=== PATIENT | female | born 1990 | race Caucasian/White ===

== ENCOUNTER 2019-10-12 08:33 | Emergency (ER) | payer MEDICAID, SELFPAY ==
[2019-10-12 08:39] VITALS: BP 115/94; PULSE 112; RESP 18; TEMP 37.3; O2SAT 98; BMI 46.6
--- NOTE | 2019-10-12 08:45 | W.ED.GENADLT ---
HPI - General Adult General: Chief complaint: General Medical Stated complaint: INSECT BITE Time Seen by Provider: 10/12/19 08:36 History of Present Illness: HPI narrative: Patient has insect bites her right arm. Complains about pain some itching. Patient 25 weeks . Onset (ago): hour(s) Location: right and upper extremity Radiation: non-radiation Severity: mild Associated symptoms: Reports no associated symptoms; Deny chest pain, dyspnea, headache(s), nausea, rash or vomiting Review of Systems Const: Denies: fever(s), chills or body aches Eyes: Denies: change in vision or blurry vision ENMT: Denies: throat pain or nasal congestion Card: Denies: chest pain or dyspnea on exertion Resp: Denies: dyspnea, productive cough or non-productive cough GI: Denies: abdominal pain, nausea or vomiting Musc: Denies: extremity pain Skin/Breast: Reports: other (Complains about insect bite to the right armpit area. And also some bites down that arm. Says Tylenol is not helping with pain.); Denies: rash Neuro: Denies: headache(s) Psych: Denies: anxiety or depression Dilip/Lymph: Denies: easy bruising PFSH ED PFSH: Social History Smoking and tobacco status: current every day smoker Physical Exam Const: COMMON NORMALS: no acute distress, average body habitus and patient oriented x3 HENMT: COMMON NORMALS: normocephalic HEAD & SCALP: normal to inspection and normocephalic FACE & SINUS: normal facial exam Eye: COMMON NORMALS: conjunctivae normal GENERAL EYE: appearance normal, both eyes and all related structures CONJUNCTIVA: Yes conjunctivae normal Neck/C-Spine: COMMON NORMALS: no JVD Chest: COMMONS NORMALS: normal inspection of the chest Resp: COMMON NORMALS: normal respiratory effort and clear to auscultation bilaterally AUSCULTATION: clear to auscultation bilaterally Cardio: COMMON NORMALS: no JVD, regular rate and regular rhythm RATE: regular rate RHYTHM: regular rhythm GI: COMMON NORMALS: Normal to inspection, nondistended, normoactive bowel sounds present Extremity: COMMON NORMALS: normal to inspection and full ROM RIGHT UPPER EXTREMITY: Yes upper arm (Patient has a bruised area near the right armpit with some redness appears to have a bite. Then has 3 bites on the right forearm that have slight redness around them.) Neuro: COMMON NORMALS: patient oriented x3 Course Vital Signs: Vital signs: Vital Signs Temperature 99.1 F 10/12/19 08:39 Pulse Rate 112 H 10/12/19 08:39 Respiratory Rate 18 10/12/19 08:39 Blood Pressure 115/94 10/12/19 08:39 Pulse Oximetry 98 10/12/19 08:39 Discharge Plan Discharge Condition: Stable Referrals: Kelly Hurt NP [Family Provider] - Coding Level of Care Code ED Candy Wrapping Machine Operator for Brian Christian
== END 2019-10-12 08:51 | disposition home or self-care (01) ==
LOC: ER 08:54
PROVIDERS: Emergency Provider Nurse Practitioner Family; Family Provider Nurse Practitioner Family
DX: S40.861A Insect bite (nonvenomous) of right upper arm, initial encounter (principal); W57.XXXA Bitten or stung by nonvenomous insect and other nonvenomous arthropods, initial encounter; F17.210 Nicotine dependence, cigarettes, uncomplicated
CPT/HCPCS: 12345; 99281

== ENCOUNTER 2021-03-31 21:47 | Emergency (ER) | payer MEDICAID, SELFPAY ==
[2021-03-31 21:56] VITALS: BP 151/95; PULSE 89; RESP 16; TEMP 36.8; O2SAT 98
--- NOTE | 2021-03-31 22:30 | ED_ITS ---
HPI - Abdominal Pain General: Chief Complaint: Abdominal Pain Stated Complaint: Hernia Pain\Back Pain Time Seen by Provider: 03/31/21 22:10 Source: patient Mode of arrival: ambulatory Limitations: no limitations History of Present Illness: HPI narrative: 30-year-old female states that she has had a history of an umbilical hernia in the past states that today the hernia is grown became hard and now is very tender and painful states it is much worse with palpation improved with rest states pain is currently sharp nature rates it a 6 out of 10 denies any vomiting denies any bowel movements no history of an incarcerated hernia there before. She had no surgeries before. Associated Symptoms: Denies chills, dysuria and fever(s) Review of Systems Const: Denies: fever(s), chills, body aches or change in appetite Eyes: Denies: blurry vision or eye discomfort ENMT: Denies: throat pain or dental pain Card: Denies: chest pain Resp: Denies: dyspnea GI: Reports: abdominal pain : Denies: dysuria Musc: Denies: neck pain or back pain Skin/Breast: Denies: rash Neuro: Denies: headache(s) Psych: Denies: depression Dilip/Lymph: Denies: easy bruising All/Imm: Denies: urticaria PFSH ED PFSH: Social History Smoking and tobacco status: current every day smoker Physical Exam Const: COMMON NORMALS: no acute distress, patient oriented x3 and healthy appearing HENMT: COMMON NORMALS: normocephalic and atraumatic HEAD & SCALP: normocephalic and atraumatic Eye: COMMON NORMALS: Equal, round and reactive pupils present and EOMs intact bilaterally PUPIL: Yes Equal, round and reactive pupils present Neck/C-Spine: COMMON NORMALS: full ROM and supple Chest: COMMONS NORMALS: normal inspection of the chest and normal palpation of entire chest wall Resp: COMMON NORMALS: normal respiratory effort, No retractions, No use of accessory muscles and clear to auscultation bilaterally AUSCULTATION: clear to auscultation bilaterally Cardio: COMMON NORMALS: regular rate, regular rhythm and No murmurs present (Cardio) RATE: regular rate RHYTHM: regular rhythm GI: COMMON NORMALS: Soft to palpation PALPATION: Yes Soft to palpation OTHER: Abdominal umbilical hernia that is protruding tender to touch Extremity: COMMON NORMALS: normal to inspection and full ROM Neuro: COMMON NORMALS: patient oriented x3, moves all extremities and no focal motor deficits Psych: COMMON NORMALS: mental status grossly normal, Normal thought process present and cooperative THOUGHT PROCESS: Normal thought process present Skin: COMMON NORMALS: no rashes or lesions noted and no wounds GENERAL SKIN EXAM: no rashes or lesions noted Course Vital Signs: Vital signs: Vital Signs Temperature 98.2 F 03/31/21 21:56 Pulse Rate 72 04/01/21 01:11 Respiratory Rate 16 04/01/21 01:11 Blood Pressure 131/85 04/01/21 01:52 Pulse Oximetry 99 04/01/21 01:11 MDM - Abdominal Pain MDM Narrative: Medical decision making narrative: Patient presents here with abdominal pain likely from a hernia hernia here is easily reduces not incarcerated she is well-appearing here and stable for discharge is to follow-up with surgery she understands agrees to plan. She is return if worsening. Lab Data: Labs: Lab Results 03/31/21 03/31/21 03/31/21 22:32 22:51 22:51 WBC 14.5 10^3/uL H 10 ^3/uL (4.0-10.0) RBC 5.01 10^6/uL 10^6 /uL (4.1-5.3) Hgb 13.3 g/dL g/dL (11.5-15.3) Hct 44.3 % % (37.0-47.0) MCV 88.4 fl fl (81-99) MCH 26.5 pg L pg (28.0-34.0) MCHC 30.0 g/dL g/dL (30.0-36.0) RDW 18.4 % H % (12.1-15.1) Plt Count 289 10^3/cmm 10^3 /cmm (130-400) MPV 9.6 fL fL (7.4-10.4) Neut % (Auto) 55.9 % % Lymph % (Auto) 32.0 % % Dickinson % (Auto) 8.3 % % Eos % (Auto) 2.5 % % Baso % (Auto) 0.8 % % Neut # (Auto) 8.12 10^3/uL H 10 ^3/uL (1.8-7.7) Lymph # (Auto) 4.6 10^3/uL 10^3/ uL (0.8-4.8) Dickinson # (Auto) 1.2 10^3/uL H 10^ 3/uL (0.2-0.9) Eos # (Auto) 0.4 10^3/uL 10^3/ uL (0.0-0.8) Baso # (Auto) 0.1 10^3/uL 10^3/ uL (0.0-0.1) Nucleated RBC % (a uto) 0 % % Nucleated RBCs # 0.0 /100WBC /100W BC Sodium Cancelled Potassium Cancelled Chloride Cancelled Carbon Dioxide Cancelled Anion Gap Cancelled BUN Cancelled Creatinine Cancelled GFR Calculation Cancelled Glucose Cancelled Calculated Osmolal ity Cancelled Calcium Cancelled Total Bilirubin Cancelled AST Cancelled ALT Cancelled Alkaline Phosphata se Cancelled Total Protein Cancelled Albumin Cancelled Globulin Cancelled Lipase Cancelled HCG, Qual Urine Color Yellow (Yellow) Urine Appearance Clear (CLEAR) Urine pH 5 (5-7) Ur Specific Gravit y 1.025 (1.005-1.030) Urine Protein Neg (Negative) Urine Glucose (UA) Norm (Normal) Urine Ketones Negative (Negative) Urine Blood Neg (Negative) Urine Nitrate Negative (Negative) Urine Bilirubin 1+ H (Negative) Urine Urobilinogen 1 mg/dL H mg/dL (Negative) Ur Leukocyte Laura ase Trace H (Negative) Urine RBC 0-4 /hpf H /hpf (0-2) Urine WBC Rare /hpf /hpf (0-5) Ur Squamous Epith Cells 15-25 /hpf H /hpf (0-5) Amorphous Sediment Not Reportable Urine Bacteria None /hpf /hpf (NONE) 03/31/21 03/31/21 03/31/21 22:51 23:25 23:25 WBC RBC Hgb Hct MCV MCH MCHC RDW Plt Count MPV Neut % (Auto) Lymph % (Auto) Dickinson % (Auto) Eos % (Auto) Baso % (Auto) Neut # (Auto) Lymph # (Auto) Dickinson # (Auto) Eos # (Auto) Baso # (Auto) Nucleated RBC % (a uto) Nucleated RBCs # Sodium 137 mmol/L mmol/L (136-145) Potassium 4.1 mmol/L mmol/L (3.5-5.1) Chloride 107 mmol/L mmol/L (98-107) Carbon Dioxide 21 mmol/L L mmol/ L (22-29) Anion Gap 13.1 (5-19) BUN 11 mg/dL mg/dL (6-20) Creatinine 0.6 mg/dL mg/dL (0.5-0.9) GFR Calculation 118.2 mL/min mL/m in (90-130) Glucose 97 mg/dL mg/dL (65-115) Calculated Osmolal ity 283 mOsm/kg L mOs m/kg (285-295) Calcium 8.1 mg/dL L mg/dL (8.5-10.5) Total Bilirubin 0.2 mg/dL mg/dL (0.15-1.2) AST 11 U/L U/L (0-32) ALT 10 U/L U/L (0-33) Alkaline Phosphata se 89 IU/L IU/L (35-105) Total Protein 5.9 g/dL L g/dL (6.6-8.7) Albumin 3.6 g/dL g/dL (3.5-5.2) Globulin 2.3 g/dL g/dL (1.3-4.6) Lipase 19 U/L U/L (13-60) HCG, Qual Cancelled Negative (Negative) Urine Color Urine Appearance Urine pH Ur Specific Gravit y Urine Protein Urine Glucose (UA) Urine Ketones Urine Blood Urine Nitrate Urine Bilirubin Urine Urobilinogen Ur Leukocyte Laura ase Urine RBC Urine WBC Ur Squamous Epith Cells Amorphous Sediment Urine Bacteria Imaging Data ^: CT Abd/Pel: Attestation: I personally reviewed and interpreted this imaging study as follows: Radiologist's impression: [address] [place] [id number] Scan Report Signed Patient: Viviana Givens Unit #: [id number] : 1990 Age/Sex: 30 / F ADM Date: 03/31/21 Loc: ER Room/Bed: Attending Dr: Ordering Provider/Ordering MD: Dylan Parikh MD Date of Service: 03/31/21 Procedure(s): CT abdomen pelvis w con* [id number] Accession Number(s): [id number] Report Number: [id number] PROCEDURE INFORMATION: Exam: CT Abdomen And Pelvis With Contrast Exam date and time: 03/31/2021 11:15 PM Age: 30 years old Clinical indication: Abdominal pain; Localized; Upper; Patient HX: Epigastric pain radiating into right side; Additional info: Abd pain TECHNIQUE: Imaging protocol: Computed tomography of the abdomen and pelvis with contrast. Radiation optimization: All CT scans at this facility use at least one of these dose optimization techniques: automated exposure control; mA and/or kV adjustment per patient size (includes targeted exams where dose is matched to clinical indication); or iterative reconstruction. Contrast material: OMNI 300; Contrast volume: 95 ml; Contrast route: INTRAVENOUS (IV); COMPARISON: CT pelvis w con* [id number] 01/24/2018 2:01 PM RADIATION DOSE METRICS: Total DLP (mGy-cm): 1680.55 FINDINGS: Lungs: The lung bases are clear. Liver: Unremarkable. Gallbladder and bile ducts: No visible gallstones by CT. Ultrasound would be more sensitive for detecting gallstones, if clinically needed. No biliary tree dilation. Pancreas: Unremarkable. Spleen: A few very small splenic calcifications/granulomata. Adrenal glands: Unremarkable. Kidneys and ureters: No hydronephrosis of either kidney. No visible ureteral calculus. No perinephric fluid. The kidneys enhance homogeneously. Stomach and bowel: Several small bowel loops are fluid-filled and borderline prominent in size, but the overall appearance is not suggestive of significant small bowel obstruction at this time. This appearance could be secondary to some form of gastroenteritis. Please correlate clinically. If there is clinical suspicion for small bowel obstruction, follow-up may be helpful to exclude progression. There are no CT findings to strongly suggest diverticulitis. Appendix: The appendix is visualized and appears normal. Intraperitoneal space: No free intraperitoneal air, or generalized ascites. Vasculature: No evidence for abdominal aortic aneurysm. Lymph nodes: Several borderline/mildly prominent retroperitoneal/periaortic lymph nodes, a nonspecific appearance. Urinary bladder: Possibly some mild diffuse urinary bladder wall thickening. Evaluation is somewhat limited, as the bladder is not well distended. While nonspecific, this could indicate evidence for cystitis. Please correlate clinically. Reproductive: Small amount of cul-de-sac fluid. No definite abnormal ovarian/adnexal cyst or mass by CT. . Bones/joints: Mild thoracolumbar scoliosis. Soft tissues: There are two adjacent supraumbilical region ventral hernias, both measuring up to about 4 cm in diameter. These were not definitely present on the comparison exam. The lower hernia in the immediate supraumbilical region is in the midline. Superior to this, the 2nd hernia is slightly to the left of the midline. There is no bowel present within the hernias. There is some increased attenuation in the fat within the hernias, more prominent in the lower hernia. While nonspecific, this may represent edema/inflammation. This might indicate evidence for incarceration of the hernia. Please correlate clinically for pain in this region. CT/CT abdomen pelvis w con* [id number] IMPRESSION: 1. Two adjacent supraumbilical region ventral hernias, apparently new in the interval. See above discussion. 2. Several small bowel loops are fluid-filled and borderline prominent in size, see above discussion. This appearance could be secondary to some form of gastroenteritis. 3. No visible gallstones by CT. 4. Normal appendix. 5. No free air or bowel distention. 6. Possible mild urinary bladder wall thickening, see above. 7. Small amount of cul-de-sac fluid. No definite abnormal ovarian/adnexal cyst or mass by CT. 8. Other findings discussed above. Dictated By: Carloz Mcelroy MD Signed By: Carloz Mcelroy MD Signed Date/Time: 04/01/21 0144 DD/ [id number] Discharge Plan Discharge Patient Disposition: Home Clinical Impression: Hernia, Abdominal pain Condition: Stable Prescriptions: New hydrocodone-acetaminophen 5-325 mg tablet 1 tab PO Q6H PRN (Reason: pain) Qty: 14 RF: 0 ondansetron 4 mg tablet,disintegrating 4 mg PO Q6H PRN (Reason: nausea and vomiting) Qty: 14 RF: 0 No Action prednisone 10 mg tablet 10 mg PO DAILY Qty: 3 RF: 0 tramadol 50 mg tablet 50 mg PO Q6H PRN (Reason: pain) Qty: 7 RF: 0 Discharge Orders: Discharge ED (Routine); Ordered 04/01/21 Ordered By: Dylan Parikh Referrals: Carmelo Salazar MD [Physician] - 1-3 days Discharge Diet: Advance as tolerated Discharge Activity: Resume usual activity Patient Instructions: Abdominal Pain (ED), Opioid Safety Coding Level of Care Code ED Cake Maker for Chg Fwd Exam Comprehensive
[2021-03-31 22:56] LABS: Basophils # 0.1 10^3/uL (0.0-0.1); Basophils % 0.8 %; Eosinophils # 0.4 10^3/uL (0.0-0.8); Eosinophils % 2.5 %; Hematocrit 44.3 % (37.0-47.0); Hemoglobin 13.3 g/dL (11.5-15.3); Lymphocytes # 4.6 10^3/uL (0.8-4.8); Mean Corpuscular Hemoglobin 26.5 pg (28.0-34.0); Mean Corpuscular Volume 88.4 fl (81-99); Mean Platelet Volume 9.6 fL (7.4-10.4); Monocytes # 1.2 10^3/uL (0.2-0.9); Monocytes % 8.3 %; Neutrophils # 8.12 10^3/uL (1.8-7.7); Neutrophils % 55.9 %; Nucleated Red Blood Cells % 0 %; Platelet Count 289 10^3/cmm (130-400); Red Blood Count 5.01 10^6/uL (4.1-5.3); Red Cell Distribution Width 18.4 % (12.1-15.1); White Blood Count 14.5 10^3/uL (4.0-10.0)
[2021-03-31 22:58] VITALS: RESP 18
[2021-03-31] MEDS: ondansetron 2 mg/ML SDV 2 mL 4 MG IVP (22:58)
[2021-03-31] MEDS: morphine 4 mg/mL SDV 1 mL IVP (22:58)
[2021-03-31] MEDS: sodium chloride 0.9% 1,000 ML 999 ML IV (22:59)
[2021-03-31] MEDS: LORazepam 2 mg/mL INJ 1 mL 1 MG IVP (22:59)
[2021-03-31 23:00] VITALS: BP 149/73; PULSE 75; RESP 18; O2SAT 98
[2021-03-31 23:12] LABS: Add Urine Microscopic? YES; Bilirubin Urine 1+ (Negative); Blood Urine Neg (Negative); Glucose Urine UA Norm (Normal); Ketones Urine Negative (Negative); Leukocyte Esterase Urine Trace (Negative); Nitrate Urine Negative (Negative); Protein Urine Neg (Negative); Specific Gravity, Urine 1.025 (1.005-1.030); Urine Appearance Clear (CLEAR); Urine Color Yellow (Yellow); Urobilinogen Urine 1 mg/dL (Negative); pH Urine 5 (5-7)
--- NOTE | 2021-03-31 23:15 | CTR_ITS ---
PROCEDURE INFORMATION: Exam: CT Abdomen And Pelvis With Contrast Exam date and time: 03/31/2021 11:15 PM Age: 30 years old Clinical indication: Abdominal pain; Localized; Upper; Patient HX: Epigastric pain radiating into right side; Additional info: Abd pain TECHNIQUE: Imaging protocol: Computed tomography of the abdomen and pelvis with contrast. Radiation optimization: All CT scans at this facility use at least one of these dose optimization techniques: automated exposure control; mA and/or kV adjustment per patient size (includes targeted exams where dose is matched to clinical indication); or iterative reconstruction. Contrast material: OMNI 300; Contrast volume: 95 ml; Contrast route: INTRAVENOUS (IV); COMPARISON: CT pelvis w con* [id number] 01/24/2018 2:01 PM RADIATION DOSE METRICS: Total DLP (mGy-cm): 1680.55 FINDINGS: Lungs: The lung bases are clear. Liver: Unremarkable. Gallbladder and bile ducts: No visible gallstones by CT. Ultrasound would be more sensitive for detecting gallstones, if clinically needed. No biliary tree dilation. Pancreas: Unremarkable. Spleen: A few very small splenic calcifications/granulomata. Adrenal glands: Unremarkable. Kidneys and ureters: No hydronephrosis of either kidney. No visible ureteral calculus. No perinephric fluid. The kidneys enhance homogeneously. Stomach and bowel: Several small bowel loops are fluid-filled and borderline prominent in size, but the overall appearance is not suggestive of significant small bowel obstruction at this time. This appearance could be secondary to some form of gastroenteritis. Please correlate clinically. If there is clinical suspicion for small bowel obstruction, follow-up may be helpful to exclude progression. There are no CT findings to strongly suggest diverticulitis. Appendix: The appendix is visualized and appears normal. Intraperitoneal space: No free intraperitoneal air, or generalized ascites. Vasculature: No evidence for abdominal aortic aneurysm. Lymph nodes: Several borderline/mildly prominent retroperitoneal/periaortic lymph nodes, a nonspecific appearance. Urinary bladder: Possibly some mild diffuse urinary bladder wall thickening. Evaluation is somewhat limited, as the bladder is not well distended. While nonspecific, this could indicate evidence for cystitis. Please correlate clinically. Reproductive: Small amount of cul-de-sac fluid. No definite abnormal ovarian/adnexal cyst or mass by CT. . Bones/joints: Mild thoracolumbar scoliosis. Soft tissues: There are two adjacent supraumbilical region ventral hernias, both measuring up to about 4 cm in diameter. These were not definitely present on the comparison exam. The lower hernia in the immediate supraumbilical region is in the midline. Superior to this, the 2nd hernia is slightly to the left of the midline. There is no bowel present within the hernias. There is some increased attenuation in the fat within the hernias, more prominent in the lower hernia. While nonspecific, this may represent edema/inflammation. This might indicate evidence for incarceration of the hernia. Please correlate clinically for pain in this region. CT/CT abdomen pelvis w con* [id number] IMPRESSION: 1. Two adjacent supraumbilical region ventral hernias, apparently new in the interval. See above discussion. 2. Several small bowel loops are fluid-filled and borderline prominent in size, see above discussion. This appearance could be secondary to some form of gastroenteritis. 3. No visible gallstones by CT. 4. Normal appendix. 5. No free air or bowel distention. 6. Possible mild urinary bladder wall thickening, see above. 7. Small amount of cul-de-sac fluid. No definite abnormal ovarian/adnexal cyst or mass by CT. 8. Other findings discussed above.
[2021-03-31 23:38] LABS: Add Urine Culture? No; RBC Urine 0-4 /hpf (0-2); Squamous Epithelial Cell Urine 15-25 /hpf (0-5); WBC Urine RARE /hpf (0-5)
[2021-03-31 23:49] LABS: HCG, Serum Qual Negative (Negative)
[2021-03-31 23:58] LABS: Alanine Aminotransferase 10 U/L (0-33); Albumin Level 3.6 g/dL (3.5-5.2); Alkaline Phosphatase 89 IU/L (35-105); Anion Gap 13.1 (5-19); Aspartate Amino Transferase 11 U/L (0-32); Blood Urea Nitrogen 11 mg/dL (6-20); Calcium 8.1 mg/dL (8.5-10.5); Carbon Dioxide 21 mmol/L (22-29); Chloride 107 mmol/L (98-107); Creatinine Clr Calc Pharmacy 142.8389; Globulin 2.3 g/dL (1.3-4.6); Glomerular Filtration Rate 118.2 mL/min (90-130); Glucose 97 mg/dL (65-115); Lipase 19 U/L (13-60); Osmolality Calculated 283 mOsm/kg (285-295); Potassium 4.1 mmol/L (3.5-5.1); Sodium 137 mmol/L (136-145); Total Bilirubin 0.2 mg/dL (0.15-1.2); Total Protein 5.9 g/dL (6.6-8.7)
[2021-04-01] MEDS: iohexol 300 mg/mL 100 mL Btl IV (00:11)
[2021-04-01 00:30] VITALS: BP 139/85; PULSE 68; RESP 16; O2SAT 98
[2021-04-01 01:11] VITALS: BP 135/80; PULSE 72; RESP 16; O2SAT 99
[2021-04-01 01:52] VITALS: BP 131/85
--- NOTE | 2021-04-01 11:18 | DCPLANNER ---
Addendum entered by Nayeli Mcguire 04/22/21 14:20: Patient had a follow up appointment scheduled with Dr. Salazar on 04.15.21 - patient did attend appointment. Original Note: manager market had message to schedule a follow up appointment for patient with Dr. Salazar. Case manger faxed patients information to the clinic of Dr. Salazar, who will call patient with appointment information.
== END 2021-04-01 01:55 | disposition home or self-care (01) ==
PROVIDERS: Emergency Provider Emergency Medicine
DX: K46.9 Unspecified abdominal hernia without obstruction or gangrene (principal); F17.210 Nicotine dependence, cigarettes, uncomplicated
CPT/HCPCS: 36415; 74177; 80053; 81001; 83690; 84703; 85025; 96361; 96374; 96375; 99284; J2060; J2270; J2405; J7030; Q9967

== ENCOUNTER 2021-08-16 19:02 | Inpatient (IN) | payer MEDICAID, SELFPAY ==
[2021-08-16 19:25] VITALS: BP 142/83; PULSE 136; RESP 18; TEMP 35.6; O2SAT 98; BMI 41.0
--- NOTE | 2021-08-16 20:18 | W.ED.ABDPA2 ---
HPI - Abdominal Pain General: Chief Complaint: Abdominal Pain Stated Complaint: hernia problems Time Seen by Provider: 08/16/21 19:56 Source: patient Mode of arrival: ambulatory Limitations: no limitations History of Present Illness: This patient is here because she has had some periumbilical abdominal pain over the past day or so. She states that she is has some discomfort and associated emesis. She denies any fevers or chills. She has a known history of periumbilical hernias and has seen surgery previously but at that time did not require repair. She denies any other complaints at this time. Specifically she denies any fevers chills or other constitutional symptoms. MD elicited complaint: abdominal pain Pain Consistency: intermittent Location: Periumbilical Radiation: none Associated Symptoms: Denies chills, dysuria and fever(s) Related Data: Date of Last Menstrual Period: 08/02/21 Review of Systems Const: Denies: fever(s), chills or body aches Eyes: Denies: change in vision or blurry vision ENMT: Denies: throat pain or odynophagia Card: Denies: chest pain or palpitations Resp: Denies: dyspnea, productive cough or non-productive cough : Denies: flank pain, difficulty voiding, dysuria or urinary frequency Musc: Denies: neck pain, back pain, extremity pain or extremity swelling Skin/Breast: Denies: rash Neuro: Denies: headache(s), numbness in extremities or weakness in extremities Psych: Denies: anxiety or depression Endo: Denies: polyuria or polydipsia Dilip/Lymph: Denies: easy bruising or easy bleeding [facility] ED PFSH: Social History Smoking and tobacco status: current every day smoker Female Reproductive History: Date of last menstrual period: 08/02/21 Physical Exam Narrative: EXAM NARRATIVE: Patient appears to be comfortable. Body habitus reveals a BMI greater than 35. She is goal-directed in her speech and answers questions appropriately. Const: COMMON NORMALS: no acute distress and alert GENERAL APPEARANCE: cooperative NUTRITIONAL APPEARANCE: overweight ORIENTATION/CONSCIOUSNESS: Yes oriented to person, Yes oriented to place and Yes oriented to time HENMT: COMMON NORMALS: normocephalic, Normal nasal mucous membranes and turbinates present and oropharynx normal HEAD & SCALP: normocephalic NOSE: Normal nasal mucous membranes and turbinates present TEETH & GINGIVA: Yes poor dentition Eye: COMMON NORMALS: Equal, round and reactive pupils present, EOMs intact bilaterally and no scleral icterus PUPIL: Yes Equal, round and reactive pupils present Neck/C-Spine: COMMON NORMALS: full ROM, no lymphadenopathy and no JVD Lymph: LYMPHATIC: no lymphadenopathy noted Resp: COMMON NORMALS: normal respiratory effort, No use of accessory muscles and clear to auscultation bilaterally EFFORT & INSPECTION: Yes able to speak in complete sentences AUSCULTATION: clear to auscultation bilaterally Cardio: COMMON NORMALS: no JVD, regular rate, regular rhythm, No murmurs present (Cardio) and Peripheral pulses 2+ throughout RATE: regular rate RHYTHM: regular rhythm PERIPHERAL PULSES: Peripheral pulses 2+ throughout GI: COMMON NORMALS: Soft to palpation and no bruits INSPECTION: No abdominal distension, Yes central obesity and No visible peristalsis AUSCULTATION: Yes normoactive bowel sounds PALPATION: Yes Soft to palpation, No Guarding due to palpation present (GI), No Rigid due to palpation, Yes Hernia present (Supraumbilical tenderness noted with very faint erythema of the skin.) umbilical, No Abdominal wall crepitus present and No Rebound tenderness present : COMMON NORMALS: Yes no CVA tenderness BLADDER/KIDNEY EXAM: Yes no CVA tenderness EXTERNAL FEMALE EXAM: Yes Hernia present (Supraumbilical tenderness noted with very faint erythema of the skin.) Back/Pelvis: COMMON NORMALS: no CVA tenderness and thoraco-lumbar ROM normal Extremity: COMMON NORMALS: normal to inspection, full ROM, capillary refill normal, no calf tenderness and no pedal edema Neuro: COMMON NORMALS: moves all extremities, no focal motor deficits and no sensory deficits noted SENSORIUM/ORIENTATION: Yes alert, Yes oriented to person, Yes oriented to place and Yes oriented to time SPEECH: speech normal Psych: COMMON NORMALS: mental status grossly normal Skin: COMMON NORMALS: no rashes or lesions noted and turgor normal GENERAL SKIN EXAM: no rashes or lesions noted and turgor normal Course Reevaluation(s): Reevaluation #1: POCUS used to evaluate abdominal wall. There appears to be a small amount of fluid present in the supraumbilical region. There appears to be some nonperistaltic structure within the fluid. Reevaluation #2: After placing ice on her area of discomfort and reassessing her she is essentially unchanged although she states she subjectively feels better. She did admit that she had a bout of emesis. We will going proceed with a noncontrasted CT to ensure that she does not have a incarcerated hernia. Reevaluation #3: After visualizing CT scan and awaiting radiology final review I spent some time gently placing pressure over the hernia however I do not feel that I was successful in completely reducing it. Time: 22:51 Consultations: Consultation #1: Received a call from Dr. [employer]. She has edematous bowel in hernia with proximal obstruction. Time: 23:15 Consultation #2: Discussed with Dr. Ruvalcaba who will see the patient Time: 23:46 Vital Signs: Vital signs: Vital Signs Temperature 96.1 F L 08/16/21 19:25 Pulse Rate 107 H 08/16/21 21:42 Respiratory Rate 17 08/16/21 21:42 Blood Pressure 152/100 08/16/21 21:42 Pulse Oximetry 96 08/16/21 21:42 MDM - Abdominal Pain Medical Decision Making Patient with a periumbilical hernia that despite attempts to successfully reduce in the emergency department a CT scan was obtained which revealed proximal obstruction with edematous bowel within the hernia sac. Given this finding and her constitutional symptoms general surgery was consulted who agreed to admit the patient. Lab Data I reviewed the patient's lab results. : 08/16/21 23:20 08/16/21 23:20 Labs/Radiology: Radiology Impressions Abdomen/Pelvis CT 08/16/21 21:25 IMPRESSION: Complete small bowel obstruction secondary to an umbilical hernia containing a portion of the terminal ileum. Strangulation is a consideration given the appearance of the herniated small bowel. ADDENDUM: 08/16/21 [id number] AKUA UNDERWOOD was informed of exam results at 08/16/2021 11:04 PM CDT. Laboratory Results WBC 23.9 10^3/uL (4.0-10.0) H 08/16/21 23:20 RBC 6.01 10^6/uL (4.1-5.3) H 08/16/21 23:20 Hgb 16.4 g/dL (11.5-15.3) H 08/16/21 23:20 Hct 49.6 % (37.0-47.0) H 08/16/21 23:20 MCV 82.5 fl (81-99) 08/16/21 23:20 MCH 27.3 pg (28.0-34.0) L 08/16/21 23:20 MCHC 33.1 g/dL (30.0-36.0) 08/16/21 23: RDW 16.9 % (12.1-15.1) H 08/16/21 23:20 Plt Count 325 10^3/cmm (130-400) 08/16/21 23:20 MPV 9.6 fL (7.4-10.4) 08/16/21 23:20 Neut % (Auto) 80.4 % 08/16/21 23:20 Lymph % (Auto) 10.2 % 08/16/21 23:20 [place] % (Auto) 8.0 % 08/16/21 23: Eos % (Auto) 0.1 % 08/16/21 23: Baso % (Auto) 0.3 % 08/16/21 23:20 Neut # (Auto) 19.18 10^3/uL (1.8-7.7) H 08/16/21 23:20 Lymph # (Auto) 2.4 10^3/uL (0.8-4.8) 08/16/21 23:20 [place] # (Auto) 1.9 10^3/uL (0.2-0.9) H 08/16/21 23:20 Eos # (Auto) 0.0 10^3/uL (0.0-0.8) 08/16/21 23:20 Baso # (Auto) 0.1 10^3/uL (0.0-0.1) 08/16/21 23:20 Nucleated RBC % (auto) 0 % 08/16/21 23: Nucleated RBCs # 0.0 /100WBC 08/16/21 23: HCG, Qual Negative (Negative) 08/16/21 21:35 Discharge Plan Discharge Clinical Impression: Hernia, ventral, Small bowel obstruction Condition: Stable Prescriptions: No Action prednisone 10 mg tablet 10 mg PO DAILY Qty: 3 0RF tramadol 50 mg tablet 50 mg PO Q6H PRN (Reason: pain) Qty: 7 0RF hydrocodone-acetaminophen 5-325 mg tablet 1 tab PO Q6H PRN (Reason: pain) Qty: 14 0RF ondansetron 4 mg tablet,disintegrating 4 mg PO Q6H PRN (Reason: nausea and vomiting) Qty: 14 0RF Coding Level 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
--- NOTE | 2021-08-16 21:25 | CTR_ITS ---
PROCEDURE INFORMATION: Exam: CT Abdomen And Pelvis Without Contrast Exam date and time: 08/16/2021 10:05 PM Age: 31 years old Clinical indication: Abdominal pain; Patient HX: Periumbilical abd pain w n/v - hernia; Additional info: Supraumbilical hernia TECHNIQUE: Imaging protocol: Computed tomography of the abdomen and pelvis without contrast. Radiation optimization: All CT scans at this facility use at least one of these dose optimization techniques: automated exposure control; mA and/or kV adjustment per patient size (includes targeted exams where dose is matched to clinical indication); or iterative reconstruction. COMPARISON: CT abdomen pelvis w con* [id number] 04/01/2021 12:05 AM RADIATION DOSE METRICS: Total DLP (mGy-cm): 1715.94 FINDINGS: Liver: Normal. No mass. Gallbladder and bile ducts: Normal. No calcified stones. No ductal dilation. Pancreas: Normal. No ductal dilation. Spleen: Normal. No splenomegaly. Adrenal glands: Normal. No mass. Kidneys and ureters: Normal. No hydronephrosis. Stomach and bowel: A small umbilical hernia containing a portion of the terminal ileum is noted. Mild intestinal wall thickening is also seen in this region. No intestinal pneumatosis. A small amount of fluid is also seen in the hernia sac. The small bowel proximal to the hernia is moderately dilated. The colon is decompressed. Appendix: The appendix is normal. Intraperitoneal space: Unremarkable. No free air. No significant fluid collection. Arteries: Unremarkable. No abdominal aortic aneurysm. Lymph nodes: Unremarkable. No enlarged lymph nodes. Urinary bladder: Unremarkable as visualized. Reproductive: Unremarkable as visualized. Bones/joints: Unremarkable. No acute fracture. CT/CT abdomen pelvis con [id number] IMPRESSION: Complete small bowel obstruction secondary to an umbilical hernia containing a portion of the terminal ileum. Strangulation is a consideration given the appearance of the herniated small bowel.
[2021-08-16 21:42] VITALS: BP 152/100; PULSE 107; RESP 17; O2SAT 96
[2021-08-16 21:45] LABS: HCG Qualitative Urine. Negative (Negative)
[2021-08-16] MEDS: ondansetron 4 MG Tablet PO (22:30)
[2021-08-16] MEDS: sodium chloride 0.9% 1,000 ML 125 ML IV (23:26)
[2021-08-16 23:29] LABS: Basophils # 0.1 10^3/uL (0.0-0.1); Basophils % 0.3 %; Eosinophils % 0.1 %; Hematocrit 49.6 % (37.0-47.0); Hemoglobin 16.4 g/dL (11.5-15.3); Lymphocytes # 2.4 10^3/uL (0.8-4.8); Lymphocytes % 10.2 %; Mean Corpuscular HGB Conc 33.1 g/dL (30.0-36.0); Mean Corpuscular Hemoglobin 27.3 pg (28.0-34.0); Mean Corpuscular Volume 82.5 fl (81-99); Mean Platelet Volume 9.6 fL (7.4-10.4); Monocytes # 1.9 10^3/uL (0.2-0.9); Neutrophils # 19.18 10^3/uL (1.8-7.7); Neutrophils % 80.4 %; Nucleated Red Blood Cells % 0 %; Platelet Count 325 10^3/cmm (130-400); Red Blood Count 6.01 10^6/uL (4.1-5.3); Red Cell Distribution Width 16.9 % (12.1-15.1); White Blood Count 23.9 10^3/uL (4.0-10.0)
[2021-08-16 23:45] LABS: Lactate (Lactic Acid level) 1.3 mmol/L (0.5-2.2)
[2021-08-16 23:46] LABS: Alanine Aminotransferase 12 U/L (0-33); Albumin Level 4.9 g/dL (3.5-5.2); Alkaline Phosphatase 151 IU/L (35-105); Anion Gap 19.6 (5-19); Aspartate Amino Transferase 15 U/L (0-32); Blood Urea Nitrogen 25 mg/dL (6-20); Calcium 9.5 mg/dL (8.5-10.5); Carbon Dioxide 25 mmol/L (22-29); Chloride 91 mmol/L (98-107); Globulin 4.3 g/dL (1.3-4.6); Glomerular Filtration Rate 98.3 mL/min (90-130); Glucose 115 mg/dL (65-115); Osmolality Calculated 279 mOsm/kg (285-295); Potassium 3.6 mmol/L (3.5-5.1); Sodium 132 mmol/L (136-145); Total Bilirubin 0.8 mg/dL (0.15-1.2); Total Protein 9.2 g/dL (6.6-8.7)
[2021-08-17] VITALS (21 sets, daily range): BP systolic 111–151; BP diastolic 68–96; PULSE 73–125; RESP 16–23; TEMP 36.2–37.3; O2SAT 91–99; BMI 41.0
[2021-08-17] MEDS: morphine 4 mg/mL SDV 1 mL IVP ×2 (00:40→05:37)
[2021-08-17] MEDS: ondansetron 2 mg/ML SDV 2 mL 4 MG IVP ×2 (00:40→05:37)
[2021-08-17] MEDS: sodium chloride 0.9% 1,000 ML 100 ML IV (02:11)
--- NOTE | 2021-08-17 07:48 | ANES.PREANE2 ---
Pre-Anesthetic Assessment Height/Weight: Height 1.52 m Weight 95.254 kg Temp Pulse Resp BP Pulse Ox 98.6 F 100 17 132/82 94 08/17/21 06:56 08/17/21 06:56 08/17/21 06:56 08/17/21 06:56 08/17/21 06:56 Preop Diagnosis: SBO Operation Date: 08/17/21 12:00 Proposed Procedures p Laparoscopic Possible Open Incisional Hernia Repair(Not Applicable) - Jeremias Ruvalcaba MD Familial anesthetic complications: None Was Beta Breann taken within 24 hours: N/A Was Clonidine taken within 24 hours: N/A Last intake: Intake Last Liquid Date 06/18/21 Last Liquid Time 08:00 Last Solid Date 08/13/21 Last Solid Time 08:00 Social Tobacco and No tobacco Exam alert, oriented x 3, clear to auscultation bilaterally and regular rate & rhythm Airway Submandibular: within normal limits Cervical ROM: within normal limits Mallampati: Class I Dentition: full History/ROS No significant complaints Pulmonary None reported CV/HEM None reported Hyponatremia Hypochloremia Hepatic None reported GI None reported CT A/P 08/16/21 CT/CT abdomen pelvis wo con [id number] IMPRESSION: Complete small bowel obstruction secondary to an umbilical hernia containing a portion of the terminal ileum. Strangulation is a consideration given the appearance of the herniated small bowel. Metabolic Morbid Obesity Musc/skel None reported Neuropsych Anxiety and Depression Anesthetic Plan ASA status: 3 (31 year old morbidly obese female with SBO and ventral hernia ) Anesthesia: Anesthesia Evaluation and General Other: We discussed risk and benefits of general anesthesia including PONV, sore throat (sometimes severe), corneal abrasion, positioning and peripheral nerve injuries, life threatening allergic reaction, post operative ICU admission requiring prolonged intubation, stroke, heart attack, , and rare incidences of recall. Patient consents to proceed with general anesthesia. Risk of > 500 ml blood loss (7ml/kg in children): No Medications/Allergies Home Medications Medication Instructions Recorded Confirmed Last Taken Type escitalopram oxalate 10 mg tablet 10 mg PO DAILY 08/17/21 08/17/21 08/16/21 08:00 History 10 mg Allergies Allergy/AdvReac Type Severity Reaction Status Date / Time No Known Allergies Allergy Verified 08/16/21 19:28 Current Medications Generic Name Dose Route Start Last Admin Trade Name Freq PRN Reason Stop Dose Admin Sodium Chloride 1,000 mls @ 100 mls/hr 08/17/21 01:45 08/17/21 02:11 Sodium Chloride 0.9% IV 100 mls/hr .Q10H [id number] Administration Morphine Sulfate 4 mg 08/17/21 00:16 08/17/21 05:37 Morphine 4 Mg/Ml Sdv 1 Ml IVP 4 mg Q4H PRN Administration SEVERE PAIN Ondansetron HCl 4 mg 08/17/21 00:16 08/17/21 05:37 Ondansetron 2 Mg/Ml Sdv 2 Ml IVP 4 mg Q4H PRN Administration NAUSEA AND VOMITING PFSH Anesthesia Surgical History (Updated 08/17/21 @ 07:49 by Jeremias Ruvalcaba MD) History of tonsillectomy Social History Smoking and tobacco status: current every day smoker Female Reproductive History Date of last menstrual period: 08/02/21 Data Anesthesia : 08/16/21 23:20 08/16/21 23:20 Short CBC 08/16/21 Range/Units 23:20 WBC 23.9 H (4.0-10.0) 10^3/uL Hgb 16.4 H (11.5-15.3) g/dL Hct 49.6 H (37.0-47.0) % MCV 82.5 (81-99) fl Plt Count 325 (130-400) 10^3/cmm Neut % (Auto) 80.4 % Neut # (Auto) 19.18 H (1.8-7.7) 10^3/uL BMP 08/16/21 23:20 Sodium 132 L Potassium 3.6 Chloride 91 L Carbon Dioxide 25 BUN 25 H Creatinine 0.7 Glucose 115 Calcium 9.5 Liver Function 08/16/21 Range/Units 23:20 Total Bilirubin 0.8 (0.15-1.2) mg/dL AST 15 (0-32) U/L ALT 12 (0-33) U/L Alkaline Phosphatase 151 H (35-105) IU/L Albumin 4.9 (3.5-5.2) g/dL Cardiac Studies: No Data to Display
--- NOTE | 2021-08-17 07:55 | P.HP_ITS ---
Providers/Chief Complaint Admitting Physician: Jeremias Ruvalcaba MD Chief Complaint: Umbilical hernia History of Present Illness Viviana Givens is a 31 year old female who presented to the ER last night with 4-day history of abdominal pain, nausea and vomiting. Patient states that she developed umbilical hernia last year after the of her second child but started having intermittent episodes of abdominal pain in March 2021 but these usually resolve spontaneously. For the last 4 days patient has been having persistent abdominal pain associated with nausea and vomiting and therefore she presented to the ER for further evaluation. An attempt was made to reduce the hernia in the ER which was unsuccessful. She states that she had a bowel movement yesterday. No prior abdominal surgeries. Review of Systems General: Reports: 10 or more systems reviewed and unremarkable except in HPI and below Medications/Allergies Home Medications Medication Instructions Recorded Confirmed Last Taken Type escitalopram oxalate 10 mg tablet 10 mg PO DAILY 08/17/21 08/17/21 08/16/21 08:00 History 10 mg Allergies Allergy/AdvReac Type Severity Reaction Status Date / Time No Known Allergies Allergy Verified 08/16/21 19:28 PFSH Acute PFSH: Surgical History History of tonsillectomy Social History Smoking and tobacco status: current every day smoker Female Reproductive History: Date of last menstrual period: 08/02/21 Vitals/I&O/Wt Last Vital Signs Temp 98.6 F 08/17/21 06:56 Pulse 100 08/17/21 06:56 Resp 17 08/17/21 06:56 BP 132/82 08/17/21 06:56 Pulse Ox 94 08/17/21 06:56 08/16/21 08/17/21 08/17/21 22:59 06:59 14:59 Intake Total 1000 / 1000 Output Total 0 / 0 Balance 1000 / 1000 Weight last 48 hrs Weight 210 lb Weight 210 lb Physical Exam Narrative: HEENT: Normocephalic Eye: Sclera /conjunctiva normal Respiratory and chest: Bilateral clear breath sounds on auscultation Cardiovascular: Normal S1 and S2 heart sounds Abdomen: Soft to palpation, incarcerated umbilical hernia, tender to palpation, no guarding or rigidity Neurological: Oriented to place person and time Skin: Intact, no lesions appreciated on gross exam Data : 08/16/21 23:20 08/16/21 23:20 A&P Assessment and plan (1) Umbilical hernia with obstruction: 31-year-old female who presents with abdominal pain, nausea, vomiting who was noted on CT abdomen pelvis to have an incarcerated umbilical hernia causing small bowel obstruction. Discussed the relevance of the findings with the patient. Plan for laparoscopic possible open umbilical hernia repair with mesh, possible bowel resection. Procedure, risks, benefits and alternatives have been discussed with the patient who wishes to proceed with surgery. 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
[2021-08-17] MEDS: sodium chloride 0.9% 1,000 ML 30 ML IV (08:03)
[2021-08-17] MEDS: piperacillin-tazobactam 3.375 GM in sodium chloride 0.9% (plus) 50 ML IV (08:10)
--- NOTE | 2021-08-17 09:16 | PM.OP ---
Operative Report Date of procedure: August 17, 2021 Pre-op diagnosis: Small bowel obstruction from incarcerated umbilical hernia containing terminal ileum Post-op diagnosis: Small bowel obstruction from incarcerated umbilical hernia containing terminal ileum Umbilical hernia measuring 7 x 4 cm Small bowel appeared viable without any evidence of necrosis Procedure done: Laparoscopic repair of incarcerated umbilical hernia containing ileum with Ventralight ST mesh measuring 15 x 10 cm Pathology: none sent Surgeon: Jeremias Ruvalcaba Anesthesia: General Condition: stable Disposition: PACU Procedure: The patient was taken to the Operating Room and was intubated under general anesthesia after the antibiotic had been administered. The abdomen was prepped and draped in a sterile manner. Using a 15 blade, a 2-cm incision was made in the left upper quadrant in the anterior axillary line and pneumoperitoneum was created using Verres needle. A 10 mm Jacob port was placed and 15 mm of pneumoperitoneum was created after a 10 mm 30? scope had been introduced. 5 mm port was placed at the level of the umbilicus under direct visualization. A loop of small bowel was incarcerated within the umbilical hernia and this was gently reduced using bowel graspers. There was no evidence of small bowel necrosis noted and the transition point at the site of obstruction was easily identified. Adjacent to this defect there was another hernia defect containing incarcerated omentum which was again easily reduced. A spinal needle was introduced through the abdominal wall and the edges of the hernial defect were marked and measured 7x4 cm. A 4 cm margin was marked on the abdominal wall on the outer edge of the hernial defect. 15 x [address] mesh was selected and 4 separate 2-0 [place]-Ced sutures were placed at the 4 corners of the mesh. Grannie needle was passed through the stab incisions and used to grasp the free ends of the [place]-Ced sutures which were then used to pull the mesh up against the abdominal wall; 5 mm SecurStraps were placed 1 cm apart along the edge of the mesh to hold it against the abdominal wall. At the end of this, it was noted that the mesh was well positioned over the hernial defect. 20 cc of saline mixed with 20cc of Exparel mixed with 20cc of 0.5% Marcaine was infiltrated in the midclavicular line bilaterally under laparoscopic visualization for a TAP block. All ports were removed under direct visualization and there was no bleeding noted from the port sites. The external oblique aponeurosis was approximated at LUQ port site using figure of eight 0 Vicryl suture. The subcutaneous tissue was approximated using 3-0 Vicryl sutures. The skin at both port sites were closed using subcuticular 4-0 Monocryl suture. The stab incisions and the port sites were covered with Dermabond. Abdominal binder was placed at the end of the procedure and the patient was extubated and transferred to recovery room in stable condition.
[2021-08-17] MEDS: famotidine 20 mg/2 mL INJ IVP ×2 (10:48→22:52)
[2021-08-17] MEDS: dextrose 5%-sod chloride 0.45% 1,000 ML 100 ML IV (10:50)
[2021-08-17] MEDS: escitalopram 10 mg Tablet PO (10:56)
--- NOTE | 2021-08-17 10:59 | PC.NURSE ---
return from surgery via stretcher at 1015.report received.pt is alert and awake.denies pain at present.5 puncture sites on abd with derma padilla intact.abd binder on.instructed in postop procedures...including walking about with assist to help resorb co2..and instructed to notify staff for any pain,nausea,bleeding..or for any concerns at all.pt verb understanding of instructions
--- NOTE | 2021-08-17 11:18 | ANE.PACU2 ---
Inpatient post-anesthesia follow up: Airway intact: Yes Vital signs: Temperature 98.2 F Pulse Rate 86 Respiratory Rate 16 Blood Pressure 124/84 Pulse Oximetry 94 Oxygen Delivery Me thod Nasal Cannula Oxygen Flow Rate 2 Fraction of Inspir ed Oxygen Hydration adequate: Yes Nausea and vomiting: No Pain level: 3 Mental status: Baseline
[2021-08-17] MEDS: piperacillin-tazobactam 3.375 GM in sodium chloride 0.9% (plus) 100 ML IV ×2 (13:45→22:54)
[2021-08-17] MEDS: oxyCODONE-APAP 5-325 mg Tablet 1 TAB PO ×2 (13:45→20:06)
[2021-08-17] MEDS: sennosides-docusate Tablet 1 TAB PO (17:59)
[2021-08-17] MEDS: cyclobenzaprine 10 mg Tablet PO (18:43)
[2021-08-18] VITALS (8 sets, daily range): BP systolic 103–148; BP diastolic 62–88; PULSE 74–97; RESP 16–20; TEMP 36.6–37.1; O2SAT 92–94
[2021-08-18] MEDS: dextrose 5%-sod chloride 0.45% 1,000 ML 100 ML IV (01:12)
[2021-08-18] MEDS: oxyCODONE-APAP 5-325 mg Tablet 1 TAB PO ×2 (04:38→11:29)
[2021-08-18] MEDS: piperacillin-tazobactam 3.375 GM in sodium chloride 0.9% (plus) 100 ML IV (05:45)
[2021-08-18 05:46] LABS: Blood Urea Nitrogen 10 mg/dL (6-20); Calcium 7.6 mg/dL (8.5-10.5); Carbon Dioxide 24 mmol/L (22-29); Chloride 102 mmol/L (98-107); Glomerular Filtration Rate 144.9 mL/min (90-130); Glucose 98 mg/dL (65-115); Osmolality Calculated 281 mOsm/kg (285-295); Sodium 136 mmol/L (136-145)
[2021-08-18 05:49] LABS: Anion Gap 13.5 (5-19); Potassium 3.5 mmol/L (3.5-5.1)
[2021-08-18] MEDS: sennosides-docusate Tablet 1 TAB PO (08:25)
[2021-08-18] MEDS: famotidine 20 mg/2 mL INJ IVP (08:26)
[2021-08-18] MEDS: escitalopram 10 mg Tablet PO (08:26)
--- NOTE | 2021-08-18 10:43 | P.PN_ITS ---
Subjective Subjective: patient has been doing well denies any nausea vomiting, tolerating her diet, had a bowel movement Medications: Reviewed: Yes Vitals/I&O/Wt Last Vital Signs Temp 98.0 F 08/18/21 08:00 Pulse 87 08/18/21 08:00 Resp 16 08/18/21 08:00 BP 107/68 08/18/21 08:00 Pulse Ox 93 08/18/21 08:00 08/17/21 08/18/21 08/18/21 22:59 06:59 14:59 Intake Total 944.5 / 2694.5 600 / 2694.5 460 / 460 Output Total 300 / 310 Balance 944.5 / 2384.5 300 / 2384.5 460 / 460 Weight last 48 hrs Weight 210 lb Weight 210 lb Physical Exam Narrative: Abdomen: Soft, minimally tender, nondistended, incision clean dry and intact Data : 08/16/21 23:20 08/18/21 05:16 A&P Assessment and plan (1) History of umbilical hernia repair: Patient is overall doing well, had a bowel movement today. 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
--- NOTE | 2021-08-18 10:47 | DCPLANNER ---
No answer when trying to call Surgical Services to make follow up appointment. Left message for them to call me back with appointment.
--- NOTE | 2021-08-18 10:50 | P.DS_ITS ---
Discharge Providers Date of Admission: 08/16/21 23:43 Date of Discharge: August 18, 2021 Attending Provider at Admission: Jeremias Ruvalcaba MD Attending Provider at Discharge: Jeremias Ruvalcaba MD Diagnoses at Discharge Discharge Diagnosis (1) History of umbilical hernia repair: Status: Acute Reason for Visit Reason for Visit: Umbilical hernia Brief History: Viviana Givens is a 31 year old female who presented to the ER last night with 4-day history of abdominal pain, nausea and vomiting.? Patient states that she developed umbilical hernia last year after the of her second child but started having intermittent episodes of abdominal pain in March 2021 but these usually resolve spontaneously.? For the last 4 days patient has been having persistent abdominal pain associated with nausea and vomiting and therefore she presented to the ER for further evaluation.? An attempt was made to reduce the hernia in the ER which was unsuccessful.? She states that she had a bowel movement yesterday.? No prior abdominal surgeries. Hospital Course Hospital Course Patient was admitted to the hospital and underwent laparoscopic repair of umbilical hernia. Postop her vital signs are stable, she is tolerating a diet and had bowel movements. Her incision is clean dry and intact. Discharge Data Studies Completed and Pending Completed Studies During Hospitalization Category Date Time Status CT abdomen pelvis wo con [id number] Urgent Cat Scan 08/16/21 21:25 Completed Pending at discharge Category Date Time Status ES surgery / GI images Routine Exams 08/17/21 07:41 Taken Basic Metabolic Panel AM [facility] Lab 08/19/21 04:00 Ordered Basic Metabolic Panel AM LABS Lab 08/20/21 04:00 Ordered Complete Blood Count w/Auto AM LABS Lab 08/19/21 04:00 Ordered Complete Blood Count w/Auto AM LABS Lab 08/20/21 04:00 Ordered Complete Blood Count w/Auto Routine Lab 08/18/21 06:09 Ordered Radiology Impressions Abdomen/Pelvis CT 08/16/21 21:25 IMPRESSION: Complete small bowel obstruction secondary to an umbilical hernia containing a portion of the terminal ileum. Strangulation is a consideration given the appearance of the herniated small bowel. ADDENDUM: 08/16/21 [id number] AKUA ALVARADO was informed of exam results at 08/16/2021 11:04 PM CDT. Laboratory Results WBC Cancelled 08/18/21 05:16 Corrected WBC Cancelled 08/18/21 05:16 RBC Cancelled 08/18/21 05:16 Hgb Cancelled 08/18/21 05:16 Hct Cancelled 08/18/21 05:16 MCV Cancelled 08/18/21 05:16 MCH Cancelled 08/18/21 05:16 MCHC Cancelled 08/18/21 05:16 RDW Cancelled 08/18/21 05:16 Plt Count Cancelled 08/18/21 05:16 MPV Cancelled 08/18/21 05:16 Gran % Cancelled 08/18/21 05:16 Neut % (Auto) Cancelled 08/18/21 05:16 Lymph % (Auto) Cancelled 08/18/21 05:16 [place] % (Auto) Cancelled 08/18/21 05:16 Eos % (Auto) Cancelled 08/18/21 05:16 Baso % (Auto) Cancelled 08/18/21 05:16 Neut # (Auto) Cancelled 08/18/21 05:16 Lymph # (Auto) Cancelled 08/18/21 05:16 [place] # (Auto) Cancelled 08/18/21 05:16 Eos # (Auto) Cancelled 08/18/21 05:16 Baso # (Auto) Cancelled 08/18/21 05:16 Absolute Gran (auto) Cancelled 08/18/21 05:16 Nucleated RBC % (auto) Cancelled 08/18/21 05:16 Nucleated RBCs # Cancelled 08/18/21 05:16 Sodium 136 mmol/L (136-145) 08/18/21 05:16 Potassium 3.5 mmol/L (3.5-5.1) 08/18/21 05:16 Chloride 102 mmol/L (98-107) 08/18/21 05:16 Carbon Dioxide 24 mmol/L (22-29) 08/18/21 05:16 Anion Gap 13.5 (5-19) 08/18/21 05:16 BUN 10 mg/dL (6-20) 08/18/21 05:16 Creatinine 0.5 mg/dL (0.5-0.9) 08/18/21 05:16 GFR Calculation 144.9 mL/min (90-130) H 08/18/21 05:16 Glucose 98 mg/dL (65-115) 08/18/21 05:16 Calculated Osmolality 281 mOsm/kg (285-295) L 08/18/21 05:16 Lactate 1.3 mmol/L (0.5-2.2) 08/16/21 23:20 Calcium 7.6 mg/dL (8.5-10.5) L 08/18/21 05:16 Total Bilirubin 0.8 mg/dL (0.15-1.2) 08/16/21 23:20 AST 15 U/L (0-32) 08/16/21 23:20 ALT 12 U/L (0-33) 08/16/21 23:20 Alkaline Phosphatase 151 IU/L (35-105) H 08/16/21 23:20 Total Protein 9.2 g/dL (6.6-8.7) H 08/16/21 23:20 Albumin 4.9 g/dL (3.5-5.2) 08/16/21 23:20 Globulin 4.3 g/dL (1.3-4.6) 08/16/21 23:20 HCG, Qual Negative (Negative) 08/16/21 21:35 Vitals Last Vital Signs Temp 98.0 F 08/18/21 08:00 Pulse 87 08/18/21 08:00 Resp 16 08/18/21 08:00 BP 107/68 08/18/21 08:00 Pulse Ox 93 08/18/21 08:00 Discharge Plan Discharge Patient Disposition: Home Condition: Stable Prescriptions: New hydrocodone-acetaminophen 5-325 mg tablet 1 tab PO Q6H PRN (Reason: pain) Qty: 20 0RF docusate sodium [Colace] 100 mg capsule 100 mg PO BID Qty: 30 0RF ondansetron HCl 4 mg tablet 4 mg PO Q8H 5 Days Qty: 15 0RF Continued escitalopram oxalate 10 mg tablet 10 mg PO DAILY 0RF Discharge Orders: Discharge Order (Routine); Ordered 08/18/21 Ordered By: Jeremias Ruvalcaba Referrals: Jeremias Ruvalcaba MD [Physician] - 2 weeks ([facility] will call you and set up an appointment for you to see Dr. Ruvalcaba within the next 2 weeks.) Patient Instructions: Opioid Safety Activity Restrictions/Additional Instructions: Diet Advance to normal diet as tolerated, increase fluid intake as much as possible. Activity Avoid strenuous activity for 2 weeks but continue with daily activities including walking as tolerated. Do not lift more than 10 pounds for 2 weeks Return to work/school You can return to work/ school whenever you feel ready as long as you don?t have to lift more than 10 pounds at work. If you have paperwork that needs to be completed for time off from work, please contact my office Driving You can resume driving once you stop using narcotic pain medications, and transition to non-opioid pain medications like Tylenol, Motrin, Aleve, etc. Medications Pain Take opioid pain medications as prescribed and transition to non-opioid pain medications like Tylenol, Motrin, Aleve etc. over the next few days. The goal of the pain medications is to make the pain bearable and not to be pain free since you recently had surgery. Resume all home medications after surgery as per the medication reconciliation list Nausea Nausea is common after surgery, take nausea medications as needed and stay on a liquid bland diet until nausea resolves. Constipation The combination of surgery, anesthesia and pain medications can result in constipation. Take stool softeners as prescribed. If you do not have a bowel movement in 3 days, please take an lryo-vgf-njjfgym laxative like MiraLAX to address the constipation. Shower It is ok to shower but avoid getting the wound wet for 48 hours after surgery. Do not soak in bathtub, swimming pool or hot tub for 2 weeks. Wound care If glue has been used on your incisions after surgery, the glue on the incision will peel slowly over the next two weeks. The stitches used are dissolvable and will not need to be removed. Do not apply antibiotics or other medications on the incision Problems with the wound: you can develop some redness around the incision from bruising after surgery. If there is increasing pain, redness, tenderness around the incision with or without drainage, please contact my office to rule out an infection. Sometimes the skin at the incisions can separate, resulting in reopening of the wound. Cover the wound with antibiotic cream and sterile dressings and contact my office. Contact physician Call the office at [phone] during office hours or go the Emergency Room ?Fever to 100.4 or greater ?Shaking chills ?Pain that increases over time ?Redness, warmth, or pus draining from incision sites ?Persistent nausea or inability to take in liquids Discharge Attestations Time Spent in Discharge Care*: less than 30 min Quality Metrics Clinical Quality Measures [ No reported AMI, CVA or VTE this stay] Coding Level of Care Code Acute Chg FW DC note Diagnoses History of umbilical hernia repair Z98.890; Z87.19
--- NOTE | 2021-08-18 11:50 | PC.CHAP ---
Pastoral Care Encounter/Spiritual Assessment Type of Contact [] Declined boat wrapper visit [] Patient/Family/Request visit [] Outpatient visit [] Follow-up visit [] Physician referral [] Code/Alert [xx] Routine visit [] Staff referral [] Actively dying [] Patient sleeping [] Family support [] [] Out of room [] Palliative care [] [] Receiving care in room [] Pre-surgical visit [] Trauma [] Long length of stay [] ICU visit [] Other: Relational/Emotional Strength [x] Patient feels connected with others/family/visitors/staff [] Distress [] Loneliness/isolation [] Abandonment Spirituality of Patient [x] Person of Heather []x Attends Temple of their Heather []x Believes in Prayer [] Reads Bible or Muslim materials [] There are Spiritual issues to be addressed Coiled Tubing Operator Interventions [x] Prayer x] Active listening [x] Non-anxious presence [] Spiritual/emotional support [] Crisis/trauma care [] Spiritual counseling [] Bereavement support [] Provided bereavement packet [] Provided Bible/devotional materials [] Provided toy/stuffed animal, coloring book to patient or family member [] Provided Communion [] Anointing/[place] [] Salvation [x] Completed spiritual assessment [] Other: Impact on Illness or Injury [] Angry [] Fearful [] Anxious [] Often cries [] Exhaustion [] Unable to work [] Unable to attend islam [] Unable to walk/stand [] Unable to read [] Unable to drive [] Unable to eat/drink [] Unable to sleep [] Unable to be with family [] Patient intubated [] Other: Summary Time spent with patient 10 min
== END 2021-08-18 12:42 | disposition home or self-care (01) | DRG 355 ==
LOC: ER 20:19 → MEDSURG 23:58
PROVIDERS: Admitting Provider Surgery; Emergency Provider Emergency Medicine; Visit Provider Surgery
PROC: 0WQF4ZZ Repair Abdominal Wall, Percutaneous Endoscopic Approach (ICD-10-PCS; principal; 2021-08-17 11:30)
DX: K42.0 Umbilical hernia with obstruction, without gangrene (principal); F17.200 Nicotine dependence, unspecified, uncomplicated
CPT/HCPCS: 36415; 74176; 80048; 80053; 81025; 83605; 85025; 99285; C1781; C9290; J1100; J1170; J1200; J2250; J2270; J2405; J2543; J2704; J2710; J3010; J3490; J7030; J7799; Q0162

== ENCOUNTER → 2021-08-26 13:28 | Outpatient (BNVA) | payer MEDICAID, SELFPAY | PROVIDERS: Visit Provider Surgery | DX: Z98.890 Other specified postprocedural states (principal); Z87.19 Personal history of other diseases of the digestive system ==

== ENCOUNTER → 2021-10-07 09:11 | Outpatient (BNVA) | payer MEDICAID, SELFPAY | PROVIDERS: Visit Provider Surgery | DX: Z98.890 Other specified postprocedural states (principal); Z87.19 Personal history of other diseases of the digestive system | CPT/HCPCS: 99024 ==

== ENCOUNTER → 2021-10-30 10:00 | Outpatient (BNVA) | payer MEDICAID, SELFPAY | PROVIDERS: Referring Provider Family Medicine; Visit Provider Nurse Practitioner Women's Health | DX: R87.610 Atypical squamous cells of undetermined significance on cytologic smear of cervix (ASC-US) (principal); R87.810 Cervical high risk human papillomavirus (HPV) DNA test positive | CPT/HCPCS: 87624 ==

== ENCOUNTER 2022-07-04 23:00 | Emergency (ER) | payer MEDICAID, SELFPAY ==
[2022-07-04 23:05] VITALS: BP 158/98; PULSE 99; RESP 15; TEMP 36.6; O2SAT 98; BMI 38.0
--- NOTE | 2022-07-04 23:15 | ED_ITS ---
HPI - Dental/Oral General: Chief complaint: Dental/Oral Stated complaint: tooth pain Time Seen by Provider: 07/04/22 23:01 Source: patient Mode of arrival: ambulatory Limitations: no limitations History of Present Illness: Patient is a 32-year-old female presents to ED today with a complaint of dental pain and facial swelling. Patient states she started noticing dental pain to her right upper lateral incisors yesterday. She states she woke up this morning and noticed some swelling to the right side of her face. Patient is not having any trouble eating, drinking, breathing, swallowing. MD Complaint: tooth pain Teeth map: 1. Onset (ago): hour(s) Duration: constant Severity: moderate Relieving factors: nothing Exacerbating factors: nothing Context: history of dental caries and poor dental care Associated symptoms: Reports no associated symptoms; Denies ear or mastoid pain, fever(s) or odynophagia Treatment prior to arrival: none Review of Systems Const: Denies: fever(s), chills, body aches, fatigue or malaise ENMT: Reports: dental pain; Denies: throat pain, odynophagia, bleeding gums, dry mouth, ear or mastoid pain, nasal discharge, nasal congestion, post nasal drip or sinus pain Card: Denies: chest pain GI: Denies: nausea or vomiting Musc: Denies: neck pain Neuro: Denies: headache(s) PFS ED PFSH: Medical History (Updated 07/04/22 @ 23:24 by LETICIA Dos Santos) Anxiety and depression No pertinent past medical history neghx: htn,dm,thyroid,dvt/pe PCP: Dr. Calvin Surgical History History of tonsillectomy History of umbilical hernia repair (08/18/21) Family History Family/Other Breast cancer Maternal Great Grandmother --dx age 60 Mother Diabetes Heart disease Thyroid disease Grandfather Diabetes Maternal and paternal Grandmother Diabetes Maternal and paternal Father Hypertension Denies family history of Colon cancer Ovarian cancer Hypercholesteremia Uterine cancer Stroke Social History Smoking and tobacco status: current every day smoker Female Reproductive History: Date of last menstrual period: 06/17/22 Physical Exam Const: COMMON NORMALS: no acute distress, patient oriented x3, no limitations and alert GENERAL APPEARANCE: cooperative NUTRITIONAL APPEARANCE: obese ORIENTATION/CONSCIOUSNESS: Yes awake, Yes oriented to person, Yes oriented to place and Yes oriented to time HENMT: COMMON NORMALS: normocephalic and atraumatic HEAD & SCALP: normal to inspection, normocephalic and atraumatic FACE & SINUS: other (mild R facial swelling; no abscess); no erythema and no edema MOUTH: Normal oral and palatal mucosa present, lip normal, tongue normal and other (floor of mouth is soft) TEETH & GINGIVA: Yes poor dentition and Yes other (extremely poor dentition with widespread dental disease) TEETH & GINGIVA IMAGES: 1. several teeth with decay all the way to the base Neck/C-Spine: COMMON NORMALS: full ROM, no lymphadenopathy and no meningeal signs GENERAL: Yes normal visual inspection, No anterior neck swelling and No submandibular swelling Neuro: COMMON NORMALS: patient oriented x3 and CN's II-XII intact bilaterally SENSORIUM/ORIENTATION: Yes alert, Yes oriented to person, Yes oriented to place and Yes oriented to time MENINGEAL SIGNS: Yes no meningeal signs Course Vital Signs: Vital signs: Vital Signs Temperature 97.9 F 07/04/22 23:05 Pulse Rate 99 07/04/22 23:05 Respiratory Rate 15 07/04/22 23:05 Blood Pressure 158/98 07/04/22 23:05 Pulse Oximetry 98 07/04/22 23:05 Oxygen Delivery Me thod 07/04/22 23:05 MDM - Dental/Oral Medical Decision Making Patient will be placed on antibiotics. She needs to see a dentist as soon as possible as she has diffuse widespread periodontal disease. Return to ED precautions given. Discharge Plan Discharge Patient Disposition: Home Clinical Impression: Severe dental caries, Dental infection Condition: Stable Prescriptions: New penicillin V potassium 500 mg tablet 500 mg PO Q8H 7 Days Qty: 21 0RF No Action escitalopram oxalate 10 mg tablet 10 mg PO DAILY Discharge Orders: Discharge ED (Routine); Ordered 07/04/22 Ordered By: Roselyn Ocasio Referrals: Mai Frost FNP [Primary Care Provider] - Patient Instructions: Toothache (ED), Mouth Care (ED), Dental Abscess Coding Level of Care Code ED [facility]
[2022-07-05] VITALS: PULSE 102; RESP 16; O2SAT 98
[2022-07-05] MEDS: penicillin v potassium 250 mg Tablet 500 MG PO (00:09)
[2022-07-05 00:18] VITALS: PULSE 102; RESP 16; O2SAT 98
== END 2022-07-05 00:13 | disposition home or self-care (01) ==
PROVIDERS: Emergency Provider Physician Assistant; PCP Registered Nurse
DX: K02.9 Dental caries, unspecified (principal); K04.7 Periapical abscess without sinus; F17.210 Nicotine dependence, cigarettes, uncomplicated
CPT/HCPCS: 99283

== ENCOUNTER → 2023-10-20 11:31 | Outpatient (BNVA) | payer MEDICAID, SELFPAY | PROVIDERS: PCP Registered Nurse; Visit Provider Nurse Practitioner Women's Health | DX: R87.610 Atypical squamous cells of undetermined significance on cytologic smear of cervix (ASC-US) (principal); R87.810 Cervical high risk human papillomavirus (HPV) DNA test positive; N92.6 Irregular menstruation, unspecified | CPT/HCPCS: 82306; 84146; 84402; 84439; 84443; 87624 ==

== ENCOUNTER → 2023-11-04 15:09 | Outpatient (BNVA) | payer MEDICAID, SELFPAY | PROVIDERS: PCP Registered Nurse; Visit Provider Nurse Practitioner Women's Health | DX: N92.6 Irregular menstruation, unspecified (principal); Q50.39 Other congenital malformation of ovary | CPT/HCPCS: 76830 ==

== ENCOUNTER → 2023-11-26 15:31 | Outpatient (BNVA) | payer MEDICAID, SELFPAY | PROVIDERS: PCP Registered Nurse; Visit Provider Nurse Practitioner Women's Health | DX: E28.2 Polycystic ovarian syndrome (principal) | CPT/HCPCS: 83036; 83525 ==